=== PATIENT | male | born 1990 | race Caucasian/White ===

== ENCOUNTER 2017-07-01 02:34 | Emergency (ER) | payer OTHER, BC ==
[2017-07-01 02:41] VITALS: RESP 16; TEMP 97.9
--- NOTE | 2017-07-01 02:49 | CPEKG ---
Heart Rate: 70 RR Interval: 857 P-R Interval: 144 QRSD Interval: 84 QT Interval: 356 QTC Interval: 385 P [place]: 63 QRS [place]: 89 T Wave [place]: 52 EKG Severity - NORMAL ECG - EKG Impression: SINUS RHYTHM Electronically Signed By: Onelia Mcgowan 01-Jul-2017 20:04:28
--- NOTE | 2017-07-01 02:53 | EDPHY ---
H & P Stated Complaint: c/o pounding heart/cough/fatigue x 1 week, no other sx HPI/ROS: HPI CHIEF COMPLAINT: Pulsating heart, palpitations, anxiety, cough HISTORY OF PRESENT ILLNESS: This patient is a 27-year-old male transgender, takes testosterone, no other medications, presents to the emergency room with 1 week of palpitations and a sensation of pulsating heart. He denies any chest pain or shortness of breath. Denies pleuritic pain. Denies fever recent illness. He does admit to a cough. Nonproductive. No pleuritic pain. States this been going on for week he became more anxious about it tonight and decided come to the emergency room. Upon arrival to the emergency room he appears well nontoxic in no acute distress. Does complain of slight anxiety. His heart rate is in the 70s. Blood pressure stable. Room air saturation 100%. He patient reports to me no history of cardiac disease or thromboembolic disease. Past Medical History: No significant medical history except for anxiety, trans gender on testosterone Past Surgical History: No significant surgical history Social History: Denies drugs alcohol tobacco. Family History: Noncontributory ROS REVIEW OF SYSTEMS: A comprehensive 10 point review of systems is otherwise negative aside from elements mentioned in the history of present illness. Exam Constitutional appears well nontoxic, slightly anxious, triage nursing summary reviewed, vital signs reviewed, awake/alert. Eyes normal conjunctivae and sclera, EOMI, PERRLA. HENT normal inspection, atraumatic, moist mucus membranes, no epistaxis, neck supple/ no meningismus, no raccoon eyes. Respiratory clear to auscultation bilaterally, normal breath sounds, no respiratory distress, no wheezing. Cardiovascular rate normal, regular rhythm, no murmur, no edema, distal pulses normal. Gastrointestinal soft, non-tender, no rebound, no guarding, normal bowel sounds, no distension, no pulsatile mass. Genitourinary no CVA tenderness. Musculoskeletal no midline vertebral tenderness, full range of motion, no calf swelling, no tenderness of extremities, no meningismus, good pulses, neurovascularly intact. Skin pink, warm, & dry, no rash, skin atraumatic. Neurologic awake, alert and oriented x 3, AAOx3, moves all 4 extremities equally, motor intact, sensory intact, CN II-XII intact, normal cerebellar, normal vision, normal speech. Psychiatric slightly anxious. Heme/Lymph/Immune no lymphadenopathy. Differential Diagnosis: Includes but is not limited to in a particular order acute anxiety, panic attack, thromboembolic disease such as PE, cardiac arrhythmia, doubt acute coronary syndrome. Medical Decision Making: Plan for this patient chest x-ray two view, IV establishment, IV Ativan for anxiety, IV fluid bolus, obtain EKG, basic blood work, D-dimer and troponin. And re-evaluate. Re-evaluation: EKG interpretation by me on record in [facility] system. Impression time of EKG 2:40 a.m., this is sinus rhythm rate of 70. There is no signs of WPW or [place]rug[place]. There is no signs of a cardiac arrhythmia. No acute ischemic changes. Intervals are appropriate. Unremarkable EKG. 0525: Patient is feeling much better after IV fluids and Ativan. Resting comfortably. He denies chest pain or shortness of breath or palpitations. Vital signs have been stable on the monitor. Normal heart rate normal blood pressure. EKG is unremarkable nonischemic no signs of cardiac arrhythmia. Chest x-ray two view reviewed by myself unremarkable pneumothorax. Negative D- dimer negative troponin normal electrolytes. Patient states he feels much better after IV Ativan. Recommend close follow-up with primary care doctor. Return emergency room if worsening symptoms questions or concerns. Source: Patient - Medical/Surgical History Hx Asthma: No Hx Chronic Respiratory Disease: No Hx Diabetes: No Hx Cardiac Disease: No Hx Renal Disease: No Hx Cirrhosis: No Hx Alcoholism: No Hx HIV/AIDS: No Hx Splenectomy or Spleen Trauma: No Other PMH: cyst removed L wrist - Social History Smoking Status: Never smoked Constitutional: Initial Vital Signs Temperature (C) 36.6 C 07/01/17 02:37 Heart Rate 74 07/01/17 02:37 Respiratory Rate 16 07/01/17 02:37 Blood Pressure 112/68 07/01/17 02:37 O2 Sat (%) 97 07/01/17 02:37 O2 Delivery Mode Room Air Allergies/Adverse Reactions: latex Allergy (Verified 07/01/17 02:42) mushroom Allergy (Verified 07/01/17 02:42) Home Medications: Medication Instructions Recorded TESTOSTERONE 07/01/17 Medical Decision Making - Data Points Laboratory Results: Laboratory Results 07/01/17 03:05 07/01/17 03:05 07/01/17 07/01/17 07/01/17 03:05 03:05 03:05 WBC 5.90 10^3/uL 10^3/uL (3.80-9.50) RBC 4.48 10^6/uL 10^6/uL (4.40-6.38) Hgb 14.2 g/dL g/dL (13.7-17.5) Hct 38.8 % L % (40.0-51.0) MCV 86.6 fL fL (81.5-99.8) MCH 31.7 pg pg (27.9-34.1) MCHC 36.6 g/dL g/dL (32.4-36.7) RDW 11.9 % % (11.5-15.2) Plt Count 216 10^3/uL 10^3/uL (150-400) MPV 10.0 fL fL (8.7-11.7) Neut % (Auto) 64.1 % % (39.3-74.2) Lymph % (Auto) 24.2 % % (15.0-45.0) [place] % (Auto) 8.6 % % (4.5-13.0) Eos % (Auto) 2.4 % % (0.6-7.6) Baso % (Auto) 0.5 % % (0.3-1.7) Nucleat RBC Rel Count 0.0 % % (0.0-0.2) Absolute Neuts (auto) 3.78 10^3/uL 10^3/uL (1.70-6.50) Absolute Lymphs (auto) 1.43 10^3/uL 10^3/uL (1.00-3.00) Absolute Monos (auto) 0.51 10^3/uL 10^3/uL (0.30-0.80) Absolute Eos (auto) 0.14 10^3/uL 10^3/uL (0.03-0.40) Absolute Basos (auto) 0.03 10^3/uL 10^3/uL (0.02-0.10) Absolute Nucleated RBC 0.00 10^3/uL 10^3/uL (0-0.01) Immature Gran % 0.2 % % (0.0-1.1) Immature Gran # 0.01 10^3/uL 10^3/uL (0.00-0.10) D-Dimer < 0.27 ug/mLFEU ug/mLFEU (0.00-0.50) Sodium 140 mEq/L mEq/L (134-144) Potassium 3.8 mEq/L mEq/L (3.5-5.2) Chloride 103 mEq/L mEq/L (97-110) Carbon Dioxide 26 mEq/l mEq/l (22-31) Anion Gap 11 mEq/L mEq/L (8-16) BUN 13 mg/dL mg/dL (7-23) Creatinine 1.0 mg/dL mg/dL (0.7-1.3) Estimated GFR > 60 Glucose 101 mg/dL H mg/dL (70-100) Calcium 9.3 mg/dL mg/dL (8.5-10.4) Magnesium 1.9 mg/dL mg/dL (1.6-2.3) Total Bilirubin 1.0 mg/dL mg/dL (0.1-1.4) Conjugated Bilirubin 0.0 mg/dL mg/dL (0.0-0.5) Unconjugated Bilirubin 1.0 mg/dL mg/dL (0.0-1.1) AST 26 IU/L IU/L (17-59) ALT 44 IU/L IU/L (21-72) Alkaline Phosphatase 80 IU/L IU/L (38-126) Creatine Kinase 107 IU/L IU/L (0-224) CK-MB (CK-2) Fraction 2.13 ng/mL ng/mL (0.00-3.19) Troponin I < 0.012 ng/mL ng/mL (0.000-0.034) NT-Pro-B Natriuret Pep 23 pg/mL pg/mL (0-125) Total Protein 6.7 g/dL g/dL (6.3-8.2) Albumin 4.2 g/dL g/dL (3.5-5.0) Lipase 79 IU/L IU/L (23-300) Medications Given: Discontinued Medications Sodium Chloride (Ns) 1,000 mls @ 0 mls/hr IV EDNOW ONE; Wide Open PRN Reason: Protocol Stop: 07/01/17 03:00 Last Admin: 11/17/17 03:05 Dose: 1,000 mls Lorazepam (Ativan Injection) 0.5 mg IVP EDNOW ONE Stop: 07/01/17 03:00 Last Admin: 07/01/17 03:05 Dose: 0.5 mg Departure - Departure Disposition: Home, Routine, Self-Care Clinical Impression: Palpitations Condition: Good Instructions: Palpitations (ED), Anxiety (ED) Additional Instructions: 1.Return emergency room if he develops worsening symptoms questions or concerns. 2. Please follow up with your primary care doctor Referrals: NONE *PRIMARY CARE P,. [Primary Care Provider] - As per Instructions
[2017-07-01] MEDS ORDERED: LORazepam 2 MG/ML INJ IVP ONE (02:59)
[2017-07-01] MEDS ORDERED: NS 1,000 ML IV ONE (02:59)
[2017-07-01 03:19] LABS: % IMMATURE GRANULYOCYTES 0.2 % (0.0-1.1); ABSOLUTE IMMATURE GRANULOCYTES 0.01 10^3/uL (0.00-0.10); ADD DIFF? NO; ADD MORPH? NO; ADD SCAN? NO; ATYPICAL LYMPHOCYTE FLAG 0 (0-99); FRAGMENT RBC FLAG 10 (0-99); HEMATOCRIT 38.8 % (40.0-51.0); HEMOGLOBIN 14.2 g/dL (13.7-17.5); LEFT SHIFT FLG 0 (0-99); LIPEMIA HEMOLYSIS FLAG 90 (0-99); MEAN CELL HEMOGLOBIN 31.7 pg (27.9-34.1); MEAN CELL HEMOGLOBIN CONCENTR. 36.6 g/dL (32.4-36.7); MEAN CELL VOLUME 86.6 fL (81.5-99.8); PLATELET CLUMPS FLAG 0 (0-99); PLATELET COUNT 216 10^3/uL (150-400); RED BLOOD CELL COUNT 4.48 10^6/uL (4.40-6.38); RED CELL DISTRIBUTION WIDTH 11.9 % (11.5-15.2)
[2017-07-01 03:29] LABS: ALANINE AMINOTRANSFERASE 44 IU/L (21-72); ALBUMIN 4.2 g/dL (3.5-5.0); ALKALINE PHOSPHATASE 80 IU/L (38-126); ANION GAP 11 mEq/L (8-16); ASPARTATE AMINOTRANSFERASE 26 IU/L (17-59); CALCIUM 9.3 mg/dL (8.5-10.4); CARBON DIOXIDE 26 mEq/l (22-31); CHLORIDE 103 mEq/L (97-110); GLOMERULAR FILTRATION RATE > 60; GLUCOSE 101 mg/dL (70-100); MAGNESIUM 1.9 mg/dL (1.6-2.3); POTASSIUM 3.8 mEq/L (3.5-5.2); SODIUM 140 mEq/L (134-144); TOTAL PROTEIN 6.7 g/dL (6.3-8.2)
[2017-07-01 03:41] LABS: CREATINE KINASE-MB FRACTION 2.13 ng/mL (0.00-3.19); TROPONIN I < 0.012 ng/mL (0.000-0.034)
[2017-07-01 05:47] VITALS: BP 117/63; PULSE 74; O2SAT 96
== END 2017-07-01 05:46 | disposition home or self-care (01) ==
DX: R00.2 Palpitations (principal); E86.9 Volume depletion, unspecified; Z91.040 Latex allergy status
CPT/HCPCS: 96374; J2060